=== PATIENT | female | born 1980 | race Caucasian/White ===

== ENCOUNTER 2017-03-04 07:41 | Emergency (ER) | payer OTHER ==
[~2017-03-04] VITALS: Ht 160 cm; Wt 64.9 kg
--- NOTE | ~2017-03-04 | EKG ---
[place] [address] [facility] [place] [address] ELECTROCARDIOGRAM REPORT Name: GERARDO ROJAS Allison [facility]: [facility] [place] [id number] Admission: 03/04/17 Attend Phys: Discharge: 03/04/17 Date of : 78 Report #: [id number] THIS REPORT FOR: //name// 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
[~2017-03-04 07:41] MED LIST: COUMADIN 5 MG TA5 M1 PO; ENOXAPARIN80 MG/0.1 SUBQ; HYDROCODON-ACE1 EAC7 PO
[2017-03-04] MEDS ORDERED: COUMADIN 5 MG TA5 M1 PO (07:53)
[2017-03-04 08:19] LABS: HEMATOCRIT 40.1 % (37.0-47.0); HEMOGLOBIN 13.9 gm/dL (12.0-15.0); MCHC 34.7 g/dL (28.0-37.0); MCV 86.2 fL (80.0-100.0); PLATELET COUNT 159 thou/uL (150-400); RBC 4.65 mil/uL (4.20-5.00); RDW 14.1 % (10.5-14.5); WBC 5.4 thou/uL (4.0-11.0)
[2017-03-04 08:22] LABS: MANUAL DIFF YES
[2017-03-04 08:26] LABS: ANION GAP 10 mmol/L (7-16); BUN 14 mg/dL (7-18); CALCIUM 9.3 mg/dL (8.5-10.1); CHLORIDE 104 mmol/L (98-107); CO2 24 mmol/L (21-32); CREATININE 0.9 mg/dL (0.6-1.0); GLUCOSE 102 mg/dL (74-106); POTASSIUM 3.3 mmol/L (3.5-5.1); SODIUM 138 mmol/L (136-145)
[2017-03-04 08:30] LABS: INR 2.2; PROTIME 22.7 Seconds (9.3-11.4)
[2017-03-04 08:34] LABS: TROPONIN-I < 0.04 ng/mL (<0.04-0.07)
[2017-03-04 08:41] LABS: ABSOLUTE NEUTROPHILS 2.5 thou/uL (1.4-8.2); TOTAL CELL COUNT 100
[2017-03-04 08:42] LABS: ANISOCYTOSIS 1+
[2017-03-04 08:44] LABS: LARGE PLATELETS OCCASIONAL; POIKILOCYTOSIS SLIGHT
== END 2017-03-04 10:33 | disposition home or self-care (01) ==
LOC: ER 07:41
PROVIDERS: Emergency Medicine
DX: R06.00 Dyspnea, unspecified (principal); E87.6 Hypokalemia; J06.9 Acute upper respiratory infection, unspecified; M79.605 Pain in left leg; G35 Multiple sclerosis; Z88.1 Allergy status to other antibiotic agents; F17.210 Nicotine dependence, cigarettes, uncomplicated; Z88.8 Allergy status to other drugs, medicaments and biological substances

== ENCOUNTER 2019-10-09 17:50 | Emergency (ER) | payer BC ==
[~2019-10-09] VITALS: Ht 157.5 cm; Wt 54.4 kg
[~2019-10-09 17:50] MED LIST changes: +MIRALAX17 GM PO; +TRAMADOL 50 MG50 MG PO
[2019-10-09 19:09] LABS: URINE BILIRUBIN NEGATIVE (Negative); URINE BLOOD 1+ (Negative); URINE CLARITY CLEAR; URINE COLOR YELLOW; URINE GLUCOSE-RANDOM* NEGATIVE (Negative); URINE KETONES NEGATIVE (Negative); URINE LEUKOCYTES-REFLEX 1+ (Negative); URINE NITRITE-REFLEX NEGATIVE (Negative); URINE PROTEIN (DIPSTICK) NEGATIVE (Negative); URINE SPECIFIC GRAVITY 1.015 (1.005-1.035); URINE UROBILINOGEN 0.2 E.U./dl (0.2-1.0)
[2019-10-09 19:11] LABS: SSA (PROTEIN CONFIRMATORY) NEGATIVE (Negative)
[2019-10-09 20:19] LABS: CASTS None Seen /LPF (None Seen); CRYSTALS None Seen /LPF (None Seen); SQUAMOUS 4-10 Moderate /LPF (0-3)
[2019-10-09 20:20] LABS: URINE RBC 0-2 Rare /HPF (0-2); URINE WBC-REFLEX 6-15 Few /HPF (0-5)
[2019-10-09 20:25] LABS: ABSOLUTE NEUTROPHILS 3.5 thou/uL (1.4-8.2); BASOPHILS 1.2 % (0.0-2.0); EOSINOPHILS 3.2 % (0.0-3.0); HEMATOCRIT 40.6 % (37.0-47.0); HEMOGLOBIN 13.6 gm/dL (12.0-15.0); LYMPHOCYTES 36.3 % (24.0-44.0); MCH 31.1 pg (26.0-34.0); MCHC 33.4 g/dL (28.0-37.0); MCV 93.1 fL (80.0-100.0); MONOCYTES 5.8 % (1.0-8.0); POLYS 53.5 % (36.0-66.0); RBC 4.37 mil/uL (4.20-5.00); RDW 12.5 % (10.5-14.5); WBC 6.5 thou/uL (4.0-11.0)
[2019-10-09 20:36] LABS: CALCIUM 9.1 mg/dL (8.5-10.1); CREATININE 0.9 mg/dL (0.6-1.0); POTASSIUM 3.5 mmol/L (3.5-5.1)
[2019-10-09 20:53] LABS: ALBUMIN 4.3 g/dL (3.4-5.0); DIRECT BILIRUBIN 0.1 mg/dL (<0.1-0.2); TOTAL BILIRUBIN 0.7 mg/dL (<0.1-1.0); TOTAL PROTEIN 8.5 g/dL (6.4-8.2)
[2019-10-09] MEDS ORDERED: KEFLEX500 M1 PO (22:18)
[2019-10-09] MEDS ORDERED: BENTYL 20 MG TA20 M1 PO (22:19)
[2019-10-09 22:44] VITALS: BP 92/65
[2019-10-09 22:48] LABS: PLATELET COUNT 136 thou/uL (150-400)
== END 2019-10-09 22:45 | disposition home or self-care (01) ==
LOC: ER 17:50
PROVIDERS: Emergency Medicine
DX: N39.0 Urinary tract infection, site not specified (principal); F17.210 Nicotine dependence, cigarettes, uncomplicated

== ENCOUNTER 2020-03-10 09:45 | Emergency (ER) | payer BC ==
[~2020-03-10] VITALS: Ht 157.5 cm; Wt 53.1 kg
[~2020-03-10 09:45] MED LIST changes: +BENTYL 20 MG TA20 M1 PO; +KEFLEX500 M1 PO
[2020-03-10] MEDS ORDERED: HYDROXYZINE HCL10 M2 PO (09:58)
[2020-03-10] MEDS ORDERED: SUMATRIPTAN SUC50 MG PO (09:58)
[2020-03-10] MEDS ORDERED: SERTRALINE HCL25 MG PO (09:59)
[2020-03-10] MEDS ORDERED: DICYCLOMINE HCL20 MG PO (10:00)
[2020-03-10 10:32] LABS: ABSOLUTE NEUTROPHILS 4.5 thou/uL (1.4-8.2); BASOPHILS 0.5 % (0.0-2.0); EOSINOPHILS 4.2 % (0.0-3.0); HEMATOCRIT 40.3 % (37.0-47.0); HEMOGLOBIN 14.2 gm/dL (12.0-15.0); LYMPHOCYTES 25.1 % (24.0-44.0); MCH 32.8 pg (26.0-34.0); MCHC 35.2 g/dL (28.0-37.0); MONOCYTES 9.1 % (1.0-8.0); POLYS 61.1 % (36.0-66.0); RBC 4.33 mil/uL (4.20-5.00); RDW 13.2 % (10.5-14.5); WBC 7.3 thou/uL (4.0-11.0)
[2020-03-10 11:15] LABS: ANION GAP 10 mmol/L (7-16); BUN 10 mg/dL (7-18); CALCIUM 9.1 mg/dL (8.5-10.1); CHLORIDE 102 mmol/L (98-107); CO2 27 mmol/L (21-32); CREATININE 0.8 mg/dL (0.6-1.0); GLUCOSE 58 mg/dL (74-106); SODIUM 139 mmol/L (136-145)
[2020-03-10 11:23] LABS: TROPONIN-I <0.06 ng/mL (<0.06)
[2020-03-10 12:30] VITALS: BP 105/70
[2020-03-10 13:25] LABS: LARGE PLATELETS OCCASIONAL; PLATELET COUNT 124 thou/uL (150-400)
--- NOTE | 2020-03-10 15:40 | EKG ---
[facility] [place] [address] ELECTROCARDIOGRAM REPORT Name: GERARDO DAVIES [facility] [id number] Admission: 03/10/20 Attend Phys: Discharge: 03/10/20 Date of : 78 Report #: [id number] THIS REPORT FOR: cc: Richard Arroyo MD, Neal A. MD Lundgren, Craig H. 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1980 Requested By: Don Bee Order Number: [id number] MD: Kalyan Merida Measurements Intervals [place] Rate: 79 P: 69 DE: 150 QRS: 40 QRSD: 91 T: 23 QT: 365 QTc: 419 Interpretive Statements Sinus rhythm No significant abnormality Compared to ECG 01/03/2018 09:18:21 No significant changes Electronically Signed On 03-10-2020 15:40:38 CDT by Kalyan Merida [email or web address] <ELECTRONICALLY SIGNED> By: Kalyan Merida MD, [facility] 03/10/20 1540 1011 1011 Kalyan Merida MD, [facility] /EPI
== END 2020-03-10 12:30 | disposition home or self-care (01) ==
LOC: ER 09:45
PROVIDERS: Emergency Medicine
DX: R06.02 Shortness of breath (principal); R05 Cough; R07.89 Other chest pain; Z20.828 Contact with and (suspected) exposure to other viral communicable diseases; F17.210 Nicotine dependence, cigarettes, uncomplicated; Z79.82 Long term (current) use of aspirin; Z79.899 Other long term (current) drug therapy; Z88.1 Allergy status to other antibiotic agents; Z91.018 Allergy to other foods; Z86.711 Personal history of pulmonary embolism

== ENCOUNTER → 2020-07-17 | Outpatient (CLI) | payer BC ==
[~2020-07-17] MED LIST changes: +DICYCLOMINE HCL20 MG PO; +HYDROXYZINE HCL10 M2 PO; +SERTRALINE HCL25 MG PO; +SUMATRIPTAN SUC50 MG PO
== END ==
LOC: LAB 12:07
PROVIDERS: ATTEND Family Medicine
DX: Z20.828 Contact with and (suspected) exposure to other viral communicable diseases (principal)

== ENCOUNTER 2020-09-21 15:56 | Emergency (ER) | payer OTHER ==
[~2020-09-21] VITALS: Ht 157.5 cm; Wt 50.8 kg
[2020-09-21 16:46] LABS: URINE BILIRUBIN NEGATIVE (Negative); URINE BLOOD NEGATIVE (Negative); URINE CLARITY CLEAR; URINE COLOR YELLOW; URINE GLUCOSE-RANDOM* NEGATIVE (Negative); URINE KETONES NEGATIVE (Negative); URINE LEUKOCYTES-REFLEX NEGATIVE (Negative); URINE NITRITE-REFLEX NEGATIVE (Negative); URINE PROTEIN (DIPSTICK) NEGATIVE (Negative)
[2020-09-21 17:51] LABS: HEMOGLOBIN 13.6 gm/dL (12.0-15.0); MCH 31.9 pg (26.0-34.0); MCHC 33.3 g/dL (28.0-37.0); MCV 95.7 fL (80.0-100.0); RBC 4.28 mil/uL (4.20-5.00); RDW 12.8 % (10.5-14.5); WBC 6.1 thou/uL (4.0-11.0)
[2020-09-21 18:11] LABS: ALBUMIN 3.7 g/dL (3.4-5.0); CREATININE 0.9 mg/dL (0.6-1.0); POTASSIUM 4.1 mmol/L (3.5-5.1); TOTAL PROTEIN 7.1 g/dL (6.4-8.2)
[2020-09-21 18:16] LABS: CALCIUM 9.2 mg/dL (8.5-10.1)
[2020-09-21 18:43] LABS: LARGE PLATELETS RARE; PLATELET COUNT 139 thou/uL (150-400)
[2020-09-21] MEDS ORDERED: HYDROCODONE-AP1 EA11 PO (20:22)
[2020-09-21 20:27] VITALS: BP 99/59
== END 2020-09-21 20:28 | disposition home or self-care (01) ==
LOC: ER 15:56
PROVIDERS: Physician Assistant
DX: R10.31 Right lower quadrant pain (principal); R11.0 Nausea; R19.7 Diarrhea, unspecified; F17.210 Nicotine dependence, cigarettes, uncomplicated; Z98.51 Tubal ligation status; Z98.890 Other specified postprocedural states; Z79.899 Other long term (current) drug therapy; Z88.1 Allergy status to other antibiotic agents; Z91.018 Allergy to other foods; Z88.0 Allergy status to penicillin

== ENCOUNTER 2021-04-03 05:25 | Emergency (ER) | payer BC ==
[~2021-04-03] VITALS: Ht 157.5 cm; Wt 59.0 kg
[~2021-04-03 05:25] MED LIST changes: +HYDROCODONE-AP1 EA11 PO
[2021-04-03 06:23] LABS: ABSOLUTE NEUTROPHILS 5.6 thou/uL (1.4-8.2); BASOPHILS 0.4 % (0.0-2.0); EOSINOPHILS 4.2 % (0.0-3.0); HEMATOCRIT 39.2 % (37.0-47.0); HEMOGLOBIN 13.6 gm/dL (12.0-15.0); LYMPHOCYTES 17.5 % (24.0-44.0); MCH 32.3 pg (26.0-34.0); MCHC 34.6 g/dL (28.0-37.0); MCV 93.5 fL (80.0-100.0); MONOCYTES 5.4 % (1.0-8.0); PLATELET COUNT 141 thou/uL (150-400); POLYS 72.5 % (36.0-66.0); RDW 12.9 % (10.5-14.5); WBC 7.7 thou/uL (4.0-11.0)
[2021-04-03 06:30] LABS: ANION GAP 6 mmol/L (7-16); BUN 11 mg/dL (7-18); CALCIUM 8.4 mg/dL (8.5-10.1); CHLORIDE 105 mmol/L (98-107); CO2 29 mmol/L (21-32); GLUCOSE 98 mg/dL (74-106); POTASSIUM 3.5 mmol/L (3.5-5.1); SODIUM 140 mmol/L (136-145)
[2021-04-03 06:41] LABS: ALBUMIN 3.5 g/dL (3.4-5.0); SGOT 28 U/L (15-37); SGPT 38 U/L (14-59); TOTAL BILIRUBIN 1.2 mg/dL (0.2-1.0); TOTAL PROTEIN 6.9 g/dL (6.4-8.2); TROPONIN-I <0.06 ng/mL (<0.06)
[2021-04-03] MEDS ORDERED: NEURONTIN 300M300 M2 PO (07:20)
[2021-04-03] MEDS ORDERED: ASA81BEC PO (07:20)
--- NOTE | 2021-04-03 08:46 | EKG ---
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
[2021-04-03] MEDS ORDERED: NORCO 10-325 T1 EACH PO (10:32)
[2021-04-03] MEDS ORDERED: MEDROLDOSEPACK PO (10:32)
[2021-04-03 10:48] VITALS: BP 101/72
== END 2021-04-03 10:53 | disposition home or self-care (01) ==
LOC: ER 05:25
PROVIDERS: Emergency Medicine
DX: R07.89 Other chest pain (principal); F17.210 Nicotine dependence, cigarettes, uncomplicated; Z20.822 Contact with and (suspected) exposure to COVID-19; Z79.899 Other long term (current) drug therapy; Z88.1 Allergy status to other antibiotic agents; Z88.0 Allergy status to penicillin; Z91.018 Allergy to other foods

== ENCOUNTER 2021-06-17 08:38 | Emergency (ER) | payer BC ==
[~2021-06-17] VITALS: Ht 157.5 cm; Wt 58.1 kg
[~2021-06-17 08:38] MED LIST changes: +ASA81BEC PO; +MEDROLDOSEPACK PO; +NEURONTIN 300M300 M2 PO; +NORCO 10-325 T1 EACH PO
[2021-06-17 09:46] LABS: ABSOLUTE NEUTROPHILS 7.5 thou/uL (1.4-8.2); BASOPHILS 0.3 % (0.0-2.0); HEMATOCRIT 42.7 % (37.0-47.0); HEMOGLOBIN 14.3 gm/dL (12.0-15.0); LYMPHOCYTES 13.8 % (24.0-44.0); MCH 31.5 pg (26.0-34.0); MCHC 33.4 g/dL (28.0-37.0); MCV 94.1 fL (80.0-100.0); MONOCYTES 4.9 % (1.0-8.0); RBC 4.54 mil/uL (4.20-5.00); RDW 13.1 % (10.5-14.5); WBC 9.3 thou/uL (4.0-11.0)
[2021-06-17 09:55] LABS: CALCIUM 8.7 mg/dL (8.5-10.1); CREATININE 0.8 mg/dL (0.6-1.0); POTASSIUM 3.7 mmol/L (3.5-5.1)
[2021-06-17 10:02] LABS: ALBUMIN 3.7 g/dL (3.4-5.0); MAGNESIUM 2.1 mg/dL (1.8-2.4); TOTAL BILIRUBIN 0.8 mg/dL (0.2-1.0); TOTAL PROTEIN 7.1 g/dL (6.4-8.2)
[2021-06-17 10:58] VITALS: BP 94/58
[2021-06-17 13:18] LABS: LARGE PLATELETS FEW; PLATELET COUNT 138 thou/uL (150-400)
== END 2021-06-17 12:04 | disposition home or self-care (01) ==
LOC: ER 08:38
PROVIDERS: Emergency Medicine
DX: G43.909 Migraine, unspecified, not intractable, without status migrainosus (principal); G35 Multiple sclerosis; F17.210 Nicotine dependence, cigarettes, uncomplicated; Z79.82 Long term (current) use of aspirin; Z79.899 Other long term (current) drug therapy; Z88.0 Allergy status to penicillin; Z88.1 Allergy status to other antibiotic agents; Z91.018 Allergy to other foods

== ENCOUNTER 2021-06-26 08:37 | Emergency (ER) | payer BC ==
[~2021-06-26] VITALS: Ht 157.5 cm; Wt 56.7 kg
[2021-06-26 09:55] VITALS: BP 98/65
== END 2021-06-26 09:56 | disposition home or self-care (01) ==
LOC: ER 08:37
DX: G43.909 Migraine, unspecified, not intractable, without status migrainosus (principal); R19.7 Diarrhea, unspecified; F17.210 Nicotine dependence, cigarettes, uncomplicated; Z79.82 Long term (current) use of aspirin; Z79.899 Other long term (current) drug therapy; Z88.0 Allergy status to penicillin; Z88.1 Allergy status to other antibiotic agents; Z91.018 Allergy to other foods